=== PATIENT | female | born 1990 | race Caucasian/White ===

== ENCOUNTER 2018-01-22 19:20 | Emergency (ER) | payer MEDICAID ==
[~2018-01-22] VITALS: Ht 170.2 cm; Wt 106.6 kg
[2018-01-22 19:44] VITALS: Ht 170.2 cm; Wt 106.6 kg
[2018-01-22 21:56] LABS: UA SPECIFIC GRAVITY 1.015 (1.005-1.035); microscopic required? YES; urine erythrocyte NEGATIVE (NEGATIVE)
[2018-01-22 22:31] VITALS: BP 121/723
== END 2018-01-22 22:31 | disposition home or self-care (01) ==
LOC: ED 19:20
PROVIDERS: Emergency Medicine
DX: N39.0 Urinary tract infection, site not specified (principal)
CPT/HCPCS: 87804

== ENCOUNTER 2019-04-08 20:46 | Emergency (ER) | payer MEDICAID ==
[~2019-04-08] VITALS: Ht 165.1 cm; Wt 103.9 kg
[2019-04-08 21:12] VITALS: Ht 165.1 cm; Wt 103.9 kg
[2019-04-09 00:45] VITALS: BP 126/73
== END 2019-04-09 00:45 | disposition home or self-care (01) ==
LOC: ED 20:46
DX: S61.210A Laceration without foreign body of right index finger without damage to nail, initial encounter (principal); S60.412A Abrasion of right middle finger, initial encounter; W26.8XXA Contact with other sharp object(s), not elsewhere classified, initial encounter; Y93.89 Activity, other specified; Y92.89 Other specified places as the place of occurrence of the external cause; Y99.8 Other external cause status
CPT/HCPCS: A4570; J2001

== ENCOUNTER 2019-08-06 08:18 | Emergency (ER) | payer MEDICAID ==
[~2019-08-06] VITALS: Ht 167.6 cm; Wt 105.7 kg
[2019-08-06 08:33] VITALS: Ht 167.6 cm; Wt 105.7 kg
[2019-08-06 11:14] VITALS: BP 136/89
== END 2019-08-06 11:14 | disposition home or self-care (01) ==
LOC: ED 08:18
DX: S93.401A Sprain of unspecified ligament of right ankle, initial encounter (principal); W10.8XXA Fall (on) (from) other stairs and steps, initial encounter; Y93.89 Activity, other specified; Y92.89 Other specified places as the place of occurrence of the external cause; Y99.8 Other external cause status